=== PATIENT | male | born 1990 | race Caucasian/White ===

== ENCOUNTER 2018-10-07 11:48 | Emergency (ER) | payer MEDICARE, MEDICAID, SELFPAY ==
[2018-10-07 11:54] VITALS: BP 151/84; PULSE 111; RESP 16; TEMP 36.9; O2SAT 99
--- NOTE | 2018-10-07 12:40 | ED.GENADUL_ITS ---
Discharge Plan Disposition Patient Disposition: HOME Condition: Stable Discharge Details Chief Complaint: RespSymp Clinical Impression: Viral syndrome Primary Care Provider: Naye Berg ED Provider: Debbi Vargas Home Meds and New Rx's Prescriptions: Continued clonazepam [Klonopin] 1 mg Tablet 1 mg PO DAILY RF: 0 trazodone 150 mg Tablet 200 mg PO HS RF: 0 dextroamphetamine-amphetamine [Adderall XR] 30 mg Capsule,Extended Release 24hr 30 mg PO QAM RF: 0 lamotrigine [Lamictal] 100 mg Tablet 100 mg PO TID RF: 0 aripiprazole [Abilify] 10 mg Tablet 10 mg PO DAILY RF: 0 Discharge Instructions Instructions: Viral Syndrome (ED) Additional Instructions: Drink plenty of fluids and get plenty of rest. Alternate Tylenol and Motrin as needed and directed for pain or fever. Follow-up with your primary care doctor in 1 week for reevaluation as needed. Return to the emergency department with any worsening or new concerning symptoms. Discharge Data Discharge Date/Time-TO BE ENTERED AT DEPARTURE: 10/07/18 12:47 Discharge Physician: Debbi Vargas Medical Decision Making 28-year-old male with no past medical history who presents with dry cough for the past month, and flulike symptoms of body aches, chills, headache, cough since this morning. States his juan?e was recently diagnosed with the flu. Patient states he had a temp of 99.9 today. He has been taking Mucinex. He denies any vomiting or diarrhea. He states he otherwise has been eating and drinking normally. Heart rate low 100s on exam. Blood pressure mildly hypertensive. Afebrile. Normal oxygen saturation and respiratory rate. Patient appears nontoxic and in no acute distress. He is speaking in full sentences. Normal ENT exam. Lungs clear to auscultation. Influenza negative. Discussed with patient that his symptoms are likely due to viral syndrome. He denies any chest pain or shortness of breath. States he mainly wanted to be checked for the flu. Patient is instructed on the importance of rest, fluids, Tylenol and Motrin and symptomatic treatment. He is instructed to follow-up with his primary care doctor for reevaluation and return here anytime if worse. HPI General Mode of arrival: ambulatory . Date/Time Provider Initiated Documentation: 10/07/18 12:05 . Limitations to Documentation: no limitations . Information obtained by: patient . HPI Narrative: Patient is a 28-year-old male with no past medical history who presents with dry cough for the past month, and flulike symptoms of body aches, chills, headache, cough since this morning. States his omar was recently diagnosed with the flu. Patient states he had a temp of 99.9 today. He has been taking Mucinex. He denies any vomiting or diarrhea. He states he otherwise has been eating and drinking normally. Related Data Home Medications Medication Instructions Recorded Confirmed aripiprazole [Abilify] 10 mg PO DAILY 10/07/18 10/07/18 clonazepam [Klonopin] 1 mg PO DAILY 10/07/18 10/07/18 dextroamphetamine-amphetamine 30 mg PO QAM 10/07/18 10/07/18 [Adderall XR] lamotrigine [Lamictal] 100 mg PO TID 10/07/18 10/07/18 trazodone 200 mg PO HS 10/07/18 10/07/18 Allergies Allergy/AdvReac Type Severity Reaction Status Date / Time amoxicillin Allergy Unverified 10/07/18 11:54 General Stated Complaint: RespSymp ONEL: 4 Review of Systems Review of Systems All systems reviewed & are unremarkable except as noted in HPI and below Constitutional Reports as per HPI, Reports body ache(s), Reports chills and Denies fever(s) Eyes Denies blurry vision ENT Denies dizziness, Denies otalgia, Denies sore throat and Denies throat swelling Cardiovascular Denies chest pain and Denies dyspnea Respiratory Reports cough and Denies dyspnea Gastrointestinal Denies abdominal pain, Denies diarrhea and Denies vomiting Genitourinary Denies hematuria and Denies dysuria Musculoskeletal Denies back pain and Denies numbness Integumentary/Breasts Denies lesions and Denies rash Neurologic Denies dizziness and Denies numbness Allergic/Immunologic Denies throat swelling [facility] Medical History No significant past medical history (Acute) Surgical History No significant past surgical history (Acute) Social History (Reviewed 10/08/18 @ 11:31 by ALEJANDRO Holcomb Smoking/Tobacco Use Status: Never alcohol intake: never substance use type: does not use Exam Const General: cooperative and healthy appearing Orientation: alert and awake HENMT Head: normal to inspection Ears: hearing grossly normal bilaterally, external ears normal and TM's normal bilaterally General nose exam: external nose normal Face and sinus: normal facial exam Mouth: oral mucosae normal Teeth and gingiva: dentition normal Throat: posterior oropharynx normal Eyes General: appearance normal, both eyes and all related structures Eyelids: eyelids normal EOM: EOM intact bilaterally Neck Neck: normal visual inspection Lymphatic: no lymphadenopathy noted Chest Chest: normal inspection of the chest Resp Effort & Inspection: normal respiratory effort and able to speak in complete sentences Auscultation: clear to auscultation bilaterally Cardio Rate: regular rate Rhythm: regular rhythm GI Inspection: normal to inspection Palpation: soft, not firm, no guarding, no hepatosplenomegaly, no masses and nontender Auscultation: normal bowel sounds Skin General skin exam: no rashes or lesions noted Neuro General: alert and awake Cognition: normal cognition Speech: speech normal Gait: normal gait Motor: muscle tone normal throughout Sensory Exam: no sensory deficits noted Extrem General: normal to inspection, full ROM, normal capillary refill and no edema Psych Appearance: grossly normal Mental Status: mental status grossly normal Speech and Movement: speech and movement normal Affect: normal affect Thought Process: normal Course Vital Signs Temperature 98.4 F 10/07/18 11:54 Pulse 111 H 10/07/18 11:54 Respiratory Rate 16 10/07/18 11:54 Blood Pressure 151/84 H 10/07/18 11:54 Pulse Oximetry 99 10/07/18 11:54 Temperature 98.4 F 10/07/18 11:54 Temperature Source Temporal Artery Scan 10/07/18 11:54 Pulse 111 H 10/07/18 11:54 Respiratory Rate 16 10/07/18 11:54 Respiratory Effort 10/07/18 11:54 Blood Pressure 151/84 H 10/07/18 11:54 Blood Pressure Position Sitting 10/07/18 11:54 Pulse Oximetry 99 10/07/18 11:54 Oxygen Delivery Method Room Air 10/07/18 11:54 Oxygen Flow Rate 0 10/07/18 11:54 Pain Level 0 10/07/18 11:54 Lab/Test Results Lab/Test Results: 10/07/18 12:05 Nasopharynx Influenza Types A,B Antigen - Final
== END 2018-10-07 12:47 | disposition home or self-care (01) ==
LOC: ER 12:50
PROVIDERS: Emergency Provider Physician Assistant; PCP Family Medicine
DX: M79.10 Myalgia, unspecified site (principal); R05 Cough; R50.9 Fever, unspecified; R51 Headache; B34.9 Viral infection, unspecified
CPT/HCPCS: 87449; 99282

== ENCOUNTER 2021-04-03 18:13 | Outpatient (REF) | payer MEDICARE, SELFPAY ==
[2021-04-07 13:12] LABS: Lamotrigine 3.3 mcg/mL (2.5 - 15.0)
== END 2021-04-03 18:14 | disposition home or self-care (01) ==
LOC: LBN 18:13
PROVIDERS: PCP Family Medicine; Visit Provider Physician Assistant
DX: R07.89 Other chest pain (principal); Z51.81 Encounter for therapeutic drug level monitoring
CPT/HCPCS: 80175

== ENCOUNTER 2021-09-17 19:08 | Outpatient (REF) | payer MEDICARE, MEDICAID, SELFPAY ==
[2021-09-18 15:23] LABS: COVID-19 RT-PCR UVMMC Result Negative (Negative)
== END 2021-09-17 19:09 | disposition home or self-care (01) ==
LOC: NCHCN 19:08
PROVIDERS: PCP Family Medicine; Visit Provider Family Medicine
DX: Z20.822 Contact with and (suspected) exposure to COVID-19 (principal)
CPT/HCPCS: U0003; U0005

== ENCOUNTER 2023-08-31 09:43 | Outpatient (CLI) | payer BC, MEDICARE, MEDICAID, SELFPAY ==
[2023-08-31 09:12] LABS: Calculated LDL 95 mg/dL (<100); Cholesterol 149 mg/dL (<200); Glucose 106 mg/dL (74-106); HDL Cholesterol 45 mg/dL (40-60); Triglyceride 49 mg/dL (<150)
== END 2023-08-31 09:44 | disposition home or self-care (01) ==
LOC: LBO 09:44
PROVIDERS: PCP Family Medicine; Visit Provider Family Medicine
DX: F90.9 Attention-deficit hyperactivity disorder, unspecified type (principal); E66.9 Obesity, unspecified; F31.32 Bipolar disorder, current episode depressed, moderate
CPT/HCPCS: 36415; 80061; 82947